=== PATIENT | female | born 1975 | race American Indian/Alaskan Native ===

== ENCOUNTER 2021-03-31 11:00 | Emergency (ER) | payer SELFPAY ==
--- NOTE | 2021-03-31 11:16 | Emergency Department Report ---
ED Shortness of Breath HPI - General Chief Complaint: Dyspnea/Respdistress Stated Complaint: SOB Time Seen by Provider: 03/31/21 11:11 Source: patient, EMS Mode of arrival: Stretcher Limitations: No Limitations - History of Present Illness Initial Comments: 45-year-old female with a past medical history of asthma without previous intubations presents to the hospital complaining of shortness of breath since last night that worsened this morning. Patient had 4 albuterol treatments prior to arrival. EMS reports room air saturation of 77% upon their arrival with respiratory distress. Patient treated with Decadron 10 mg, magnesium 2 g, and albuterol 5 mg with some minor improvement. Patient still appears to be dyspneic, with accessory muscle use, significant wheezing. Initial room air saturation 95% when placed on the monitor. Respiratory requested stat for continuous nebs Patient states she had Covid in January and has been vaccinated but has not yet received a booster - Related Data Previous Rx's Medication Instructions Recorded Last Taken Type ALBUTEROL NEB's [Proventil 0.083% 2.5 mg IH TID PRN #30 neb 03/31/21 Unknown Rx NEBS] Albuterol Sulfate [Proventil Hfa] 6.7 gm IH Q4HR PRN #1 inh 03/31/21 Unknown Rx Prednisone [predniSONE 10 mg 10 mg PO .TAPER #1 pack 03/31/21 Unknown Rx (6-Day Pack, 21 Tabs)] Allergies Allergy/AdvReac Type Severity Reaction Status Date / Time No Known Allergies Allergy Unverified 03/31/21 11:20 ED Review of Systems ROS: Stated complaint: SOB Other details as noted in HPI Comment: All other systems reviewed and negative ED Past Medical Hx - Medications Home Medications: Home Medications Medication Instructions Recorded Confirmed Last Taken Type ALBUTEROL NEB's [Proventil 0.083% 2.5 mg IH TID PRN #30 neb 03/31/21 Unknown Rx NEBS] Albuterol Sulfate [Proventil Hfa] 6.7 gm IH Q4HR PRN #1 inh 03/31/21 Unknown Rx Prednisone [predniSONE 10 mg 10 mg PO .TAPER #1 pack 03/31/21 Unknown Rx (6-Day Pack, 21 Tabs)] ED Physical Exam - General Limitations: No Limitations - Other Other exam information: General: Moderate respiratory Head: Atraumatic Eyes: normal appearance Neck: Normal appearance, no midline tenderness Chest: Tachypneic, bilateral significant wheezing with poor air movement, dyspneic with speaking CV: Tachycardic regular rhythm Abdomen: Soft nontender, nondistended, no rebound or guarding Back: Normal inspection Extremity: Normal inspection, full range of motion, no calf tenderness or leg Neuro: Alert O x 3, no facial asymmetry, speech clear, no gross motor sensory deficit Psych: Appropriate behavior Skin: No rash ED Course Vital Signs 03/31/21 03/31/21 03/31/21 11:02 11:15 11:26 Temperature 98.2 F Pulse Rate 108 H Pulse Rate [ Bilateral] Respiratory 20 20 Rate Respiratory Rate [Bilateral ] Blood Pressure Blood Pressure 130/101 [Right] O2 Sat by Pulse 100 95 99 Oximetry 03/31/21 03/31/21 03/31/21 11:30 11:46 11:50 Temperature Pulse Rate 104 H 102 H Pulse Rate [ 117 H Bilateral] Respiratory 16 15 Rate Respiratory 20 Rate [Bilateral ] Blood Pressure 145/112 124/95 Blood Pressure [Right] O2 Sat by Pulse 100 99 Oximetry 03/31/21 03/31/21 03/31/21 12:00 12:16 12:30 Temperature Pulse Rate 98 H 97 H 100 H Pulse Rate [ Bilateral] Respiratory 15 14 16 Rate Respiratory Rate [Bilateral ] Blood Pressure 119/92 118/77 129/98 Blood Pressure [Right] O2 Sat by Pulse 100 100 100 Oximetry 03/31/21 03/31/21 03/31/21 12:46 13:00 13:16 Temperature Pulse Rate 88 101 H 95 H Pulse Rate [ Bilateral] Respiratory 12 13 13 Rate Respiratory Rate [Bilateral ] Blood Pressure 139/88 139/88 117/88 Blood Pressure [Right] O2 Sat by Pulse 100 100 100 Oximetry 03/31/21 03/31/21 03/31/21 13:30 13:46 14:00 Temperature Pulse Rate 88 88 101 H Pulse Rate [ Bilateral] Respiratory 13 13 14 Rate Respiratory Rate [Bilateral ] Blood Pressure 123/103 120/100 134/88 Blood Pressure [Right] O2 Sat by Pulse 100 100 92 Oximetry 03/31/21 03/31/21 03/31/21 14:15 14:32 14:46 Temperature Pulse Rate 96 H 116 H 91 H Pulse Rate [ Bilateral] Respiratory 13 15 Rate Respiratory Rate [Bilateral ] Blood Pressure 121/74 121/74 116/80 Blood Pressure [Right] O2 Sat by Pulse 91 90 98 Oximetry 03/31/21 03/31/21 03/31/21 15:00 15:16 15:30 Temperature Pulse Rate 98 H 96 H 96 H Pulse Rate [ Bilateral] Respiratory 17 19 22 Rate Respiratory Rate [Bilateral ] Blood Pressure 116/81 136/83 113/67 Blood Pressure [Right] O2 Sat by Pulse 96 98 94 Oximetry 03/31/21 03/31/21 03/31/21 15:45 15:46 16:00 Temperature Pulse Rate 95 H 98 H Pulse Rate [ 110 H Bilateral] Respiratory 18 17 Rate Respiratory 20 Rate [Bilateral ] Blood Pressure 115/69 130/82 Blood Pressure [Right] O2 Sat by Pulse 95 96 Oximetry 03/31/21 03/31/21 03/31/21 16:16 16:30 16:46 Temperature Pulse Rate 100 H 100 H 112 H Pulse Rate [ Bilateral] Respiratory 14 12 16 Rate Respiratory Rate [Bilateral ] Blood Pressure 122/81 103/77 123/89 Blood Pressure [Right] O2 Sat by Pulse 92 96 95 Oximetry - Reevaluation(s) Reevaluation #1: 03/31/21 14:03 Patient reassessed after continuous nebs and is breathing more comfortable with decreased but persistent wheezing. Patient placed on room and will reassess prior to disposition Reevaluation #2: 03/31/21 14:40 Patient with dyspnea with ambulation will start decreasing to 91%. 03/31/21 15:33 I did attempt to admit patient to Dr. Green however, he requested ABG prior to admission. ABG states that quantity not sufficient. I contacted respiratory therapist who states that patient declined additional ABG attempts. epeat albuterol 5 mg ordered and I will reassess. 03/31/21 17:37 Patient to be ambulated and tolerated well. Wheezing much improved ED Medical Decision Making - Lab Data Result diagrams: 03/31/21 11:18 03/31/21 11:18 Lab Results 03/31/21 03/31/21 03/31/21 Range/Units 11:18 11:18 11:18 WBC 9.5 (4.5-11.0) K/mm3 RBC 4.69 (3.65-5.03) M/mm3 Hgb 11.3 (10.1-14.3) gm/dl Hct 36.3 (30.3-42.9) % MCV 78 L (79-97) fl MCH 24 L (28-32) pg MCHC 31 (30-34) % RDW 16.5 H (13.2-15.2) % Plt Count 297 (140-440) K/mm3 Lymph % (Auto) 17.5 (13.4-35.0) % [place] % (Auto) 8.7 H (0.0-7.3) % Eos % (Auto) 7.7 H (0.0-4.3) % Baso % (Auto) 0.5 (0.0-1.8) % Lymph # (Auto) 1.7 (1.2-5.4) K/mm3 [place] # (Auto) 0.8 (0.0-0.8) K/mm3 Eos # (Auto) 0.7 H (0.0-0.4) K/mm3 Baso # (Auto) 0.0 (0.0-0.1) K/mm3 Seg Neutrophils % 65.6 (40.0-70.0) % Seg Neutrophils # 6.2 (1.8-7.7) K/mm3 ABG pH ABG pCO2 ABG pO2 ABG HCO3 ABG O2 Saturation ABG O2 Content ABG Base Excess ABG Hemoglobin ABG Carboxyhemoglobin ABG Methemoglobin Oxyhemoglobin FiO2 Sodium 143 (137-145) mmol/L Potassium 4.0 (3.6-5.0) mmol/L Chloride 106.0 (98-107) mmol/L Carbon Dioxide 26 (22-30) mmol/L Anion Gap 15 mmol/L BUN 8 (7-17) mg/dL Creatinine 0.8 (0.6-1.2) mg/dL Estimated GFR > 60 ml/min BUN/Creatinine Ratio 10 % Glucose 115 H (65-100) mg/dL Calcium 8.8 (8.4-10.2) mg/dL HCG, Qual Negative (Negative) 03/31/21 Range/Units 15:05 WBC (4.5-11.0) K/mm3 RBC (3.65-5.03) M/mm3 Hgb (10.1-14.3) gm/dl Hct (30.3-42.9) % MCV (79-97) fl MCH (28-32) pg MCHC (30-34) % RDW (13.2-15.2) % Plt Count (140-440) K/mm3 Lymph % (Auto) (13.4-35.0) % [place] % (Auto) (0.0-7.3) % Eos % (Auto) (0.0-4.3) % Baso % (Auto) (0.0-1.8) % Lymph # (Auto) (1.2-5.4) K/mm3 [place] # (Auto) (0.0-0.8) K/mm3 Eos # (Auto) (0.0-0.4) K/mm3 Baso # (Auto) (0.0-0.1) K/mm3 Seg Neutrophils % (40.0-70.0) % Seg Neutrophils # (1.8-7.7) K/mm3 ABG pH TNR ABG pCO2 TNR ABG pO2 TNR ABG HCO3 TNR ABG O2 Saturation TNR ABG O2 Content TNR ABG Base Excess TNR ABG Hemoglobin TNR ABG Carboxyhemoglobin TNR ABG Methemoglobin TNR Oxyhemoglobin TNR FiO2 TNR Sodium (137-145) mmol/L Potassium (3.6-5.0) mmol/L Chloride (98-107) mmol/L Carbon Dioxide (22-30) mmol/L Anion Gap mmol/L BUN (7-17) mg/dL Creatinine (0.6-1.2) mg/dL Estimated GFR ml/min BUN/Creatinine Ratio % Glucose (65-100) mg/dL Calcium (8.4-10.2) mg/dL HCG, Qual (Negative) - Radiology Data Radiology results: report reviewed CHEST 1 VIEW 03/31/2021 12:23 PM INDICATION / CLINICAL INFORMATION: Shortness of breath. COMPARISON: None available. FINDINGS: SUPPORT DEVICES: None. HEART / MEDIASTINUM: No significant abnormality. LUNGS / PLEURA: No significant pulmonary or pleural abnormality. No pneumothorax. ADDITIONAL FINDINGS: No significant additional findings. IMPRESSION: 1. No acute findings. - Medical Decision Making 45-year-old female presents to the hospital complaining of wheezing and shortness of breath progressively worsening for several days. Patient treated with multiple bronchodilators, steroids, and with an ECM and had improvement over several hours. ED work-up included chest x-ray labs are unremarkable. Patient will be discharged with medications for acute asthma exacerbation Critical Care Time: Yes Critical care attestation.: If time is entered above; I have spent that time in minutes in the direct care of this critically ill patient, excluding procedure time. ED Disposition Clinical Impression: Acute asthma exacerbation Disposition: HOME / SELF CARE / HOMELESS Is pt being admited?: No Does the pt Need Aspirin: No Condition: Stable Instructions: Asthma, Adult Additional Instructions: Take the medication as prescribed. Follow-up with your doctor or doctor/clinic provided. Return if symptoms worsen as indicated by your discharge instructions. Prescriptions: Prednisone [predniSONE 10 mg (6-Day Pack, 21 Tabs)] 10 mg PO .TAPER #1 pack ALBUTEROL NEB's [Proventil 0.083% NEBS] 2.5 mg IH TID PRN #30 neb PRN Reason: Wheezing Albuterol Sulfate [Proventil Hfa] 6.7 gm IH Q4HR PRN #1 inh PRN Reason: Wheezing Referrals: EDWIN HOWARD MD [Primary Care Provider] - 3-5 Days [facility] [Provider Group] - 3-5 Days LEVAR LEA MD [Staff Physician] - 3-5 Days Time of Disposition: 17:40
[2021-03-31] MEDS: ALBUTEROL 2.5 MG/3 ML NEBU IH ONE ×2 (11:54→12:55)
[2021-03-31] MEDS: IPRATROPIUM 0.02% NEBU 2.5 ML IH ONE ×2 (11:54→12:53)
[2021-03-31 12:09] LABS: Basophils % (Auto) 0.5 % (0.0-1.8); Eosinophils # (Auto) 0.7 K/mm3 (0.0-0.4); Eosinophils % (Auto) 7.7 % (0.0-4.3); Hematocrit 36.3 % (30.3-42.9); Hemoglobin 11.3 gm/dl (10.1-14.3); Lymphocytes # (Auto) 1.7 K/mm3 (1.2-5.4); Lymphocytes % (Auto) 17.5 % (13.4-35.0); Mean Corpuscular HGB Conc 31 % (30-34); Mean Corpuscular Volume 78 fl (79-97); Monocytes # (Auto) 0.8 K/mm3 (0.0-0.8); Monocytes % (Auto) 8.7 % (0.0-7.3); Platelet Count 297 K/mm3 (140-440); Red Blood Count 4.69 M/mm3 (3.65-5.03); Red Cell Distribution Width 16.5 % (13.2-15.2)
[2021-03-31 12:21] LABS: BUN/Creatinine Ratio 10; Blood Urea Nitrogen 8 mg/dL (7-17); Calcium 8.8 mg/dL (8.4-10.2); Hemolysis Index 2
--- NOTE | 2021-03-31 13:29 | XRay Report ---
CHEST 1 VIEW 03/31/2021 12:23 PM INDICATION / CLINICAL INFORMATION: Shortness of breath. COMPARISON: None available. FINDINGS: SUPPORT DEVICES: None. HEART / MEDIASTINUM: No significant abnormality. LUNGS / PLEURA: No significant pulmonary or pleural abnormality. No pneumothorax. ADDITIONAL FINDINGS: No significant additional findings. IMPRESSION: 1. No acute findings. Signer Name: Priyank Polo MD Signed: 03/31/2021 1:24 PM Workstation Name: [email or web address]
[2021-03-31 15:16] LABS: ABG PH TNR pH Units (7.350-7.450)
[2021-03-31 15:17] LABS: ABG Base Excess TNR mmol/L (-2.0-3.0); ABG HCO3 TNR mmol/L (20.0-26.0); ABG Methemoglobin TNR % (0.0-1.5); ABG Oxygen Saturation TNR % (95.0-99.0); ABG PCO2 TNR mm Hg; ABG PO2 TNR mm Hg (80.0-90.0)
[2021-03-31] MEDS ORDERED: ALBUTEROL 2.5 MG/3 ML NEBU IH ONE (15:33)
[2021-03-31 18:27] VITALS: BP 125/76
--- NOTE | 2021-04-01 10:20 | Electrocardiograph Report ---
[facility] Test Date: 2021-03-31 Test Time: 11:22:33 Pat Name: CE SILVESTRE Department: Room: Gender: F [employer] Program[employer] Analyst: ALICIA : [id number] Requested By: MIKE MARTINEZ Order Number: [id number] Reading MD: Rodríguez Perez Measurements Intervals [place] Rate: 111 P: 71 CO: 152 QRS: 43 QRSD: 86 T: 16 QT: 341 QTc: 464 Interpretive Statements Sinus tachycardia Probable left atrial enlargement Low voltage, extremity leads No previous ECG available for comparison Electronically Signed On 04-01-2021 10:19:50 EST by Rodríguez Perez
== END 2021-03-31 18:35 | disposition home or self-care (01) ==
LOC: ED 11:00
DX: J45.901 Unspecified asthma with (acute) exacerbation (principal)
CPT/HCPCS: 36415; 71045; 80048; 82803; 84703; 85025; 93005; 93010; 94640; 94644; 99284